=== PATIENT | female | born 1995 | race Caucasian/White ===

== ENCOUNTER 2021-12-03 10:41 | Outpatient (CLI) | payer OTHER ==
[2021-12-03 17:25] LABS: SARS-CoV-2 PCR by NAA DETECTED (NotDetected)
== END 2021-12-03 10:42 | disposition home or self-care (01) ==
LOC: CSHLAB 10:41
PROVIDERS: ATTEND Advanced Practice Midwife
DX: U07.1 COVID-19 (principal)
CPT/HCPCS: U0003; U0005

== ENCOUNTER 2021-12-06 02:36 | Inpatient (IN) | payer OTHER ==
[2021-12-06 02:54] VITALS: BMI 28.9
[2021-12-06] MEDS ORDERED: hydrALAZINE 20 MG/ML VIAL SLOW IVP PRN ×2 (03:25→05:23)
[2021-12-06] MEDS ORDERED: Promethazine HCl 25 MG/ML VIAL IM PRN ×3 (03:26→09:44)
[2021-12-06] MEDS ORDERED: Morphine 4 MG/ML VIAL SLOW IVP SCH (03:30)
[2021-12-06] MEDS ORDERED: Lactated Ringer's 1,000 ML IV SCH (03:30)
[2021-12-06 04:04] LABS: Fetal Membranes Rupture RUPTURE DETECTED (No Rupture)
[2021-12-06] MEDS: Morphine 10 MG/ML VIAL IM SCH ×2 (04:13→21:41)
[2021-12-06] MEDS ORDERED: Ondansetron PF 4 MG/2 ML Vial IVP PRN ×2 (05:23→09:44)
[2021-12-06] MEDS ORDERED: Butorphanol Tartrate 1 MG/ML VIAL SLOW IVP PRN (05:23)
[2021-12-06] MEDS ORDERED: Ibuprofen 800 MG TAB PO PRN (05:23)
[2021-12-06] MEDS ORDERED: HYDROcodone/Acetaminophen 5/325 mg Tablet PO PRN (05:23)
[2021-12-06] MEDS ORDERED: Lidocaine 1% (PF) 30 ML VIAL SC PRN (05:23)
[2021-12-06 05:50] LABS: Hemoglobin 10.8 g/dL (12.0-15.5); Mean Corpuscular HGB CONC 31.9 g/dL (32.0-36.0); Mean Corpuscular Hemoglobin 25.6 pg (27.0-33.0); Mean Corpuscular Volume 80.3 fl (81.6-98.3); Mean Platelet Volume 10.7 fl (7.4-10.4); Platelet Count 284 10x3/uL (150-450); Red Blood Cell (RBC) Count 4.22 10x6/uL (3.90-5.03)
[2021-12-06 06:26] LABS: Syphilis Antibody Nonreactive (Nonreactive); Syphilis Antibody Index 0.05 S/CO (<1.00 Non-Reactive)
[2021-12-06 06:27] LABS: Hep B Surf Ag Non-Reactive S/CO (NonReactive)
[2021-12-06 06:28] LABS: HBSAg Index 0.16 S/CO (0-0.99)
[2021-12-06] MEDS ORDERED: Bupivacaine 0.25% HCL 30 ML VIAL ONE (08:00)
[2021-12-06] MEDS ORDERED: Fentanyl 2 mcg/Bup 0.1% Cadd 100 ML ONE ×2 (08:51→15:52)
[2021-12-06] MEDS ORDERED: Lactated Ringer's 500 ML IV PRN (09:44)
[2021-12-06] MEDS ORDERED: ePHEDrine Sulfate 50 MG/10 ML VIAL SLOW IVP PRN (09:44)
[2021-12-06] MEDS ORDERED: Hydrocerin (Eucerin) Cream 120 gm Jar TOP PRN (09:44)
[2021-12-06] MEDS ORDERED: Acetaminophen 325 MG TAB PO PRN (09:44)
[2021-12-06] MEDS ORDERED: diphenhydrAMINE 50 MG/ML VIAL IVP PRN (09:44)
[2021-12-06] MEDS ORDERED: Naloxone HCl 0.4 mg/ml Vial IVP PRN ×2 (09:44)
[2021-12-06] MEDS ORDERED: Fentanyl 2 mcg/Bupivacaine 0.1% Cassette 100 ML EPIDURAL SCH (09:45)
[2021-12-06] MEDS ORDERED: Communication Order-Pharmacy FS SCH (09:45)
[2021-12-06] MEDS ORDERED: NS w/ Oxytocin 30 units 500 ML ONE (15:51)
[2021-12-06] MEDS: Lactated Ringer's 1,000 ML IV SCH ×3 (21:41→21:42)
[2021-12-06] MEDS: NS w/ Oxytocin 30 units 500 ML IV SCH ×2 (21:41→23:45)
[2021-12-06] MEDS ORDERED: Misoprostol 200 MCG TAB ONE (23:16)
[2021-12-06] MEDS ORDERED: ceFAZolin 2 GM/Dextrose 50 ML IVPB ONE (23:36)
[2021-12-06] MEDS ORDERED: ceFAZolin 2 GM/Dextrose 50 ML 2 GM in Premix Bag 1 BAG IVPB SCH (23:45)
[2021-12-07] MEDS ORDERED: Famotidine 20 MG TAB PO SCH (00:30)
[2021-12-07] MEDS ORDERED: Ondansetron PF 4 MG/2 ML Vial IVP PRN (02:37)
[2021-12-07] MEDS ORDERED: NS w/ Oxytocin 30 units 500 ML IV SCH (02:37)
[2021-12-07] MEDS ORDERED: Boostrix 0.5 ML (Tdap) VIAL IM ONE (02:37)
[2021-12-07] MEDS ORDERED: Benzocaine-Menthol 82.5 ML CAN TOP PRN (02:37)
[2021-12-07] MEDS ORDERED: hydrALAZINE 20 MG/ML VIAL SLOW IVP PRN (02:37)
[2021-12-07] MEDS ORDERED: Bisacodyl 10 MG SUPP PR PRN (02:37)
[2021-12-07] MEDS ORDERED: Methylergonovine 0.2 MG/ML VIAL IM PRN (02:37)
[2021-12-07] MEDS ORDERED: Milk Of Magnesia 30 ML UDCUP PO PRN (02:37)
[2021-12-07] MEDS ORDERED: HYDROcodone/Acetaminophen 5/325 mg Tablet PO PRN ×2 (02:37)
[2021-12-07 04:47] LABS: Hemoglobin 8.4 g/dL (12.0-15.5); Mean Corpuscular HGB CONC 32.2 g/dL (32.0-36.0); Mean Corpuscular Hemoglobin 25.8 pg (27.0-33.0); Mean Corpuscular Volume 80.1 fl (81.6-98.3); Mean Platelet Volume 10.6 fl (7.4-10.4); Platelet Count 235 10x3/uL (150-450); RBC Distribution Width 15.9 % (11.5-14.5); Red Blood Cell (RBC) Count 3.26 10x6/uL (3.90-5.03)
[2021-12-07] MEDS ORDERED: Ibuprofen 800 MG TAB PO SCH (06:00)
[2021-12-07] MEDS: Docusate 100 MG CAP PO SCH ×2 (07:48→21:02)
[2021-12-07] MEDS: Ferrous Sulfate 325 MG TAB PO SCH ×2 (07:48→18:27)
[2021-12-07] MEDS: Ibuprofen 800 MG TAB PO SCH (15:23)
[2021-12-08] MEDS: Ibuprofen 800 MG TAB PO SCH ×2 (00:15→07:38)
[2021-12-08] MEDS: Docusate 100 MG CAP PO SCH (07:39)
[2021-12-08] MEDS: Ferrous Sulfate 325 MG TAB PO SCH (07:39)
[2021-12-08 09:56] VITALS: BP 112/58; TEMP 98.7
== END 2021-12-08 13:50 | disposition home or self-care (01) | DRG 806 ==
LOC: CSHLD/OP 02:36 → CSHLD 08:43 → CSHPP 12-07 02:05
PROVIDERS: ADMIT Obstetrics & Gynecology; ATTEND Obstetrics & Gynecology
PROC: 10E0XZZ Delivery of Products of Conception, External Approach (ICD-10-PCS; principal; 2021-12-06)
PROC: 10D17Z9 Manual Extraction of Products of Conception, Retained, Via Natural or Artificial Opening (ICD-10-PCS; 2021-12-06)
DX: O48.0 Post-term pregnancy (principal); D62 Acute posthemorrhagic anemia; Z37.0 Single live birth; O72.0 Third-stage hemorrhage; Z3A.40 40 weeks gestation of pregnancy; F41.9 Anxiety disorder, unspecified; O99.344 Other mental disorders complicating childbirth; O76 Abnormality in fetal heart rate and rhythm complicating labor and delivery; O69.81X0 Labor and delivery complicated by cord around neck, without compression, not applicable or unspecified; O73.1 Retained portions of placenta and membranes, without hemorrhage; Z79.899 Other long term (current) drug therapy; O90.81 Anemia of the puerperium
CPT/HCPCS: 36415; 84112; 85027; 86780; 86850; 86900; 86901; 87340; J0690; J2270; J2550; J2590; J7120; S0020; U0003; U0005